=== PATIENT | female | born 1975 | race African-American/Black ===

== ENCOUNTER 2017-01-25 21:58 | Emergency (ER) | payer MEDICAID ==
[~2017-01-25] VITALS: Ht 152.4 cm; Wt 100.0 kg
[2017-01-26 04:01] VITALS: BP 103/52
== END 2017-01-26 04:03 | disposition home or self-care (01) ==
LOC: ER 22:38
DX: M25.561 Pain in right knee (principal); Z88.0 Allergy status to penicillin
CPT/HCPCS: 29505; 73562; 81025; 99284

== ENCOUNTER 2018-09-13 02:50 | Emergency (ER) | payer MEDICAID ==
[~2018-09-13] VITALS: Ht 149.9 cm; Wt 136.0 kg
[2018-09-13] MEDS ORDERED: SODIUM CHLORIDE 0.9% 1,000 ML IV ONE (04:58)
[2018-09-13 05:58] LABS: CHLORIDE 107 mEq/L (98-107)
[2018-09-13 06:05] LABS: BASOPHILS % 0.5 % (0.0-2.0); EOSINOPHILS % 3.9 % (0.0-5.0); HEMATOCRIT. 37.8 % (36.0-48.0); LYMPHOCYTES % 25.3 % (20.0-50.0); MEAN CORPUSCULAR HEMOGLOBIN 23.6 pg (28.0-32.0); MEAN CORPUSCULAR VOLUME 74.5 fL (81.0-99.0); MEAN PLATELET VOLUME 7.7 fl (7.4-10.4); NEUTROPHILS % 64.3 % (40.0-76.0); PLATELET 360 x1000/uL (130-400); RED BLOOD CELL COUNT 5.08 mill/uL (4.2-5.4); RED CELL DISTRIBUTION WIDTH 18.4 % (11.6-14.6)
[2018-09-13 06:43] LABS: *AMPHETAMINES SCREEN URINE NEGATIVE (NEGATIVE); *BARBITURATES SCREEN URINE NEGATIVE (NEGATIVE)
[2018-09-13 06:44] LABS: *BENZODIAZEPINES SCREEN URINE NEGATIVE (NEGATIVE); *COCAINE SCREEN URINE NEGATIVE (NEGATIVE); METHADONE URINE SCREEN NEGATIVE (NEGATIVE); OPIATES URINE SCREEN NEGATIVE (NEGATIVE); PHENCYCLIDINE URINE SCREEN NEGATIVE (NEGATIVE)
[2018-09-13 07:14] LABS: CANNABINOID URINE SCREEN PRESUMTIVE POSITIVE (NEGATIVE)
[2018-09-13 08:09] VITALS: BP 118/69
== END 2018-09-13 08:48 | disposition home or self-care (01) ==
LOC: ER 02:50
DX: R00.2 Palpitations (principal); F41.9 Anxiety disorder, unspecified; Z88.0 Allergy status to penicillin
CPT/HCPCS: 36415; 71045; 80053; 80305; 83880; 84484; 85025; 93005; 96360; 99284; J7030

== ENCOUNTER 2018-12-05 17:47 | Inpatient (IN) | payer MEDICAID ==
[~2018-12-05] VITALS: Ht 149.9 cm; Wt 131.1 kg
[2018-12-05] MEDS ORDERED: ESCI10TA PO (18:03)
[2018-12-05] MEDS ORDERED: ALPR1TAB2 PO (18:03)
[2018-12-05] MEDS ORDERED: QUET50TA PO (18:03)
[2018-12-05] MEDS ORDERED: OMEP10CA5 PO (18:03)
[2018-12-05] MEDS ORDERED: NITROGLYCERIN 0.4MG TABLET SL SL PRN (22:15)
[2018-12-05] MEDS ORDERED: ASPIRIN 81MG TABLET PO ONE (22:15)
[2018-12-05 23:04] LABS: CHLORIDE 106 mEq/L (98-107)
[2018-12-05 23:06] LABS: HCG SCREEN NEGATIVE
[2018-12-05 23:07] LABS: BASOPHILS % 1.1 % (0.0-2.0); HEMATOCRIT. 36.7 % (36.0-48.0); HEMOGLOBIN. 11.6 g/dL (12.0-16.0); MEAN CORPUSCULAR HEMOGLOBIN 23.7 pg (28.0-32.0); MEAN PLATELET VOLUME 7.8 fl (7.4-10.4); MONOCYTES % 8.1 % (2.0-8.0); NEUTROPHILS % 44.8 % (40.0-76.0); PLATELET 381 x1000/uL (130-400); RED CELL DISTRIBUTION WIDTH 17.3 % (11.6-14.6)
[2018-12-05 23:08] LABS: D-DIMER 0.79 mg/L FEU (<0.50); PARTIAL THROMBOPLASTIN TIME 28.2 sec (23.4-31.0); PROTHROMBIN TIME 10.7 sec (9.6-11.0)
[2018-12-06] MEDS ORDERED: DOCUSATE SODIUM 100MG CAPSULE PO PRN
[2018-12-06] MEDS ORDERED: MAGNESIUM/ALUMINUM HYDROXIDE/SIMETHICONE 30ML UDC PO PRN
[2018-12-06] MEDS ORDERED: ACETAMINOPHEN 325MG TABLET PO PRN
[2018-12-06] MEDS ORDERED: CLONIDINE 0.1MG TABLET PO PRN
[2018-12-06] MEDS ORDERED: IPRATROPIUM/ALBUTEROL 0.5-3(2.5)MG/3ML NEB INH PRN
[2018-12-06] MEDS ORDERED: HYDROCODONE/ACETAMINOPHEN 5/325MG TABLET PO PRN
[2018-12-06] MEDS ORDERED: ONDANSETRON HCL 4MG/2ML INJ IV PRN
[2018-12-06] MEDS ORDERED: IOHEXOL-350 100 ML BOTTLE ONE (00:33)
[2018-12-06 00:43] LABS: CHLORIDE 107 mEq/L (98-107)
[2018-12-06 01:55] VITALS: BP 136/78
[2018-12-06 02:00] VITALS: BP 136/78
[2018-12-06 04:00] VITALS: BP 132/83
[2018-12-06] MEDS ORDERED: PANT40TA4 MT (05:34)
[2018-12-06] MEDS ORDERED: ALPR-340 PO (05:34)
[2018-12-06] MEDS ORDERED: ESCI10TA54 MT (05:34)
[2018-12-06] MEDS ORDERED: HYDR50CA5 MT (05:36)
[2018-12-06 07:22] LABS: BASOPHILS % 0.4 % (0.0-2.0); EOSINOPHILS % 5.7 % (0.0-5.0); HEMATOCRIT. 34.9 % (36.0-48.0); HEMOGLOBIN. 10.9 g/dL (12.0-16.0); LYMPHOCYTES % 31.8 % (20.0-50.0); MEAN CORPUSCULAR HEMOGLOBIN 23.4 pg (28.0-32.0); MEAN PLATELET VOLUME 7.9 fl (7.4-10.4); MONOCYTES % 9.1 % (2.0-8.0); PLATELET 337 x1000/uL (130-400); RED BLOOD CELL COUNT 4.66 mill/uL (4.2-5.4); RED CELL DISTRIBUTION WIDTH 17.6 % (11.6-14.6)
[2018-12-06 07:33] LABS: LDL CHOLESTEROL 57 mg/dL (5-100)
[2018-12-06 07:34] LABS: CREATINE KINASE 137 IU/L (26-192); HDL CHOLESTEROL 51 mg/dL (40-59)
[2018-12-06 07:36] LABS: CREATINE KINASE MB FRACTION < 1.0 ng/mL (0.5-3.6)
[2018-12-06 08:00] VITALS: BP 113/52
[2018-12-06] MEDS: ASPIRIN 81MG EC TABLET PO SCH (09:59)
[2018-12-06] MEDS: ENOXAPARIN 40MG/0.4ML SYR SUBCUT SCH ×2 (09:59→20:49)
[2018-12-06] MEDS ORDERED: PNEUMOCOCCAL 23-VAL P-SAC VAC 0.5 ML IM ONE (12:00)
[2018-12-06] MEDS ORDERED: POTASSIUM CHLORIDE 20MEQ TABLET SR PO NR (15:15)
[2018-12-06] MEDS ORDERED: ALPRAZOLAM 0.5 MG TABLET PO PRN (15:15)
[2018-12-06] MEDS ORDERED: NON FORMULARY PATIENT HOME MED XX SCH (15:15)
[2018-12-06 16:05] LABS: CREATINE KINASE 145 IU/L (26-192)
[2018-12-06 16:07] LABS: CREATINE KINASE MB FRACTION < 1.0 ng/mL (0.5-3.6)
[2018-12-06] MEDS ORDERED: MAGNESIUM 4 G PREMIX 100 ML IV SCH (16:30)
[2018-12-06 16:45] LABS: TOTAL IRON BINDING CAPACITY 308 ug/dL (250-450)
[2018-12-06] MEDS: PANTOPRAZOLE 40MG DR TABLET PO SCH (17:28)
[2018-12-06 20:00] VITALS: BP 114/58
[2018-12-06] MEDS ORDERED: QUETIAPINE FUMARATE 50MG TABLET PO SCH (21:00)
[2018-12-07] VITALS: BP 121/55
[2018-12-07 04:00] VITALS: BP 104/63
[2018-12-07] MEDS: PANTOPRAZOLE 40MG DR TABLET PO SCH (06:39)
[2018-12-07 07:16] LABS: BASOPHILS % 0.4 % (0.0-2.0); EOSINOPHILS % 8.7 % (0.0-5.0); HEMATOCRIT. 34.6 % (36.0-48.0); HEMOGLOBIN. 10.8 g/dL (12.0-16.0); LYMPHOCYTES % 43.7 % (20.0-50.0); MEAN CORPUSCULAR HEMOGLOBIN 23.5 pg (28.0-32.0); MEAN CORPUSCULAR VOLUME 75.4 fL (81.0-99.0); MEAN PLATELET VOLUME 7.8 fl (7.4-10.4); NEUTROPHILS % 39.2 % (40.0-76.0); PLATELET 314 x1000/uL (130-400); RED BLOOD CELL COUNT 4.59 mill/uL (4.2-5.4); RED CELL DISTRIBUTION WIDTH 17.5 % (11.6-14.6)
[2018-12-07 08:00] VITALS: BP 121/76
[2018-12-07 08:24] LABS: CHLORIDE 108 mEq/L (98-107)
[2018-12-07] MEDS ORDERED: CITALOPRAM HYDROBROMIDE 20MG TABLET PO SCH (09:00)
[2018-12-07] MEDS: ASPIRIN 81MG EC TABLET PO SCH (09:22)
[2018-12-07] MEDS: ENOXAPARIN 40MG/0.4ML SYR SUBCUT SCH (09:23)
[2018-12-07 11:47] VITALS: BP 113/49
[2018-12-07 15:12] VITALS: BP 113/49
[2018-12-07 15:53] VITALS: BP 129/60
== END 2018-12-07 17:40 | disposition home or self-care (01) | DRG 203 ==
LOC: ER 17:47 → 8WST 23:36 → ENRESERV 12-06 00:10
PROVIDERS: ADMIT Internal Medicine; ATTEND Internal Medicine
DX: M94.0 Chondrocostal junction syndrome [Tietze] (principal); D72.1 Eosinophilia; E66.01 Morbid (severe) obesity due to excess calories; E83.42 Hypomagnesemia; Z68.43 Body mass index [BMI] 50.0-59.9, adult; R07.89 Other chest pain; K52.9 Noninfective gastroenteritis and colitis, unspecified; F32.9 Major depressive disorder, single episode, unspecified; D50.9 Iron deficiency anemia, unspecified; E87.6 Hypokalemia; R73.03 Prediabetes; G89.4 Chronic pain syndrome; I10 Essential (primary) hypertension; K21.9 Gastro-esophageal reflux disease without esophagitis; Z79.01 Long term (current) use of anticoagulants; Z79.899 Other long term (current) drug therapy; Z88.0 Allergy status to penicillin; Z71.3 Dietary counseling and surveillance
CPT/HCPCS: 36415; 71045; 71275; 80048; 80061; 82550; 82553; 82728; 83036; 83540; 83550; 83735; 83880; 84100; 84443; 84484; 84703; 85379; 93005; 93306; 93970; 99285; J1650; J3475; J7050; Q9967

== ENCOUNTER 2020-09-01 08:03 | Emergency (ER) | payer MEDICAID ==
[~2020-09-01] VITALS: Ht 160 cm; Wt 88.0 kg
[~2020-09-01 08:03] MED LIST: ALPR-340 PO; ESCI-7 MT; HYDR50CA5 MT; PANT40TA51 MT; QUET50TA PO
[2020-09-01 08:09] VITALS: BP 115/70
== END 2020-09-01 09:03 | disposition home or self-care (01) ==
LOC: ER 08:03
DX: G47.00 Insomnia, unspecified (principal); F41.9 Anxiety disorder, unspecified; Z88.0 Allergy status to penicillin
CPT/HCPCS: 99281

== ENCOUNTER 2020-09-30 02:36 | Emergency (ER) | payer MEDICAID ==
[~2020-09-30] VITALS: Ht 154.9 cm; Wt 91.0 kg
[2020-09-30 04:00] VITALS: BP 138/80
== END 2020-09-30 04:37 | disposition home or self-care (01) ==
LOC: ER 02:36
DX: Z13.9 Encounter for screening, unspecified (principal); I49.9 Cardiac arrhythmia, unspecified
CPT/HCPCS: 93005; 99283

== ENCOUNTER 2020-11-10 01:23 | Emergency (ER) | payer MEDICAID ==
[~2020-11-10] VITALS: Ht 149.9 cm; Wt 104.0 kg
[2020-11-10 05:38] LABS: BASOPHILS % 0.7 % (0.0-2.0); EOSINOPHILS % 1.8 % (0.0-5.0); HEMATOCRIT. 38.1 % (36.0-48.0); HEMOGLOBIN. 11.8 g/dL (12.0-16.0); LYMPHOCYTES % 25.1 % (20.0-50.0); MEAN CORPUSCULAR HEMOGLOBIN 24.9 pg (28.0-32.0); MEAN CORPUSCULAR VOLUME 80.3 fL (81.0-99.0); MEAN PLATELET VOLUME 7.7 fl (7.4-10.4); MONOCYTES % 7.6 % (2.0-8.0); NEUTROPHILS % 64.8 % (40.0-76.0); PLATELET 326 x1000/uL (130-400); RED BLOOD CELL COUNT 4.75 mill/uL (4.2-5.4); RED CELL DISTRIBUTION WIDTH 17.1 % (11.6-14.6)
[2020-11-10 05:43] LABS: CHLORIDE 109 mEq/L (98-107)
[2020-11-10 06:18] LABS: CLARITY URINE TURBID (CLEAR); KETONES URINE 2+ (NEGATIVE); LEUKOCYTE ESTERASE URINE 3+ (NEGATIVE); NITRITE URINE POSITIVE (NEGATIVE); OCCULT BLOOD URINE 3+ (NEGATIVE); PROTEIN URINE 3+ (NEGATIVE); SPECIFIC GRAVITY URINE 1.042 (1.005-1.030)
[2020-11-10 06:19] LABS: COLOR URINE BLOODY (YELLOW)
[2020-11-10] MEDS ORDERED: IBUP-2030 PO (06:58)
[2020-11-10 07:00] VITALS: BP 130/86
[2020-11-10] MEDS ORDERED: NITR100C PO (07:00)
== END 2020-11-10 07:13 | disposition home or self-care (01) ==
LOC: ER 01:23
DX: D25.9 Leiomyoma of uterus, unspecified (principal); N39.0 Urinary tract infection, site not specified; F12.10 Cannabis abuse, uncomplicated; Z87.19 Personal history of other diseases of the digestive system
CPT/HCPCS: 36415; 76830; 76856; 80053; 81003; 85025; 93005; 99285

== ENCOUNTER 2021-02-23 20:24 | Emergency (ER) | payer MEDICAID ==
[~2021-02-23] VITALS: Ht 149.9 cm; Wt 106.0 kg
[~2021-02-23 20:24] MED LIST changes: +IBUP-2030 PO; +NITR100C PO
[2021-02-23] MEDS ORDERED: TETANUS, DIPHTHERIA, PERTUSSIS VAC/PF 0.5ML (>7YR OLD) IM ONE (22:00)
[2021-02-23] MEDS ORDERED: IBUPROFEN 600MG TABLET PO ONE (22:00)
[2021-02-23 22:30] VITALS: BP 148/96
== END 2021-02-23 23:07 | disposition home or self-care (01) ==
LOC: ER 20:24
DX: S91.332A Puncture wound without foreign body, left foot, initial encounter (principal); M19.90 Unspecified osteoarthritis, unspecified site; F12.10 Cannabis abuse, uncomplicated; Z88.0 Allergy status to penicillin; W22.8XXA Striking against or struck by other objects, initial encounter; Y93.89 Activity, other specified; Y92.018 Other place in single-family (private) house as the place of occurrence of the external cause
CPT/HCPCS: 90471; 90715; 99283

== ENCOUNTER 2022-04-30 10:11 | Emergency (ER) | payer MEDICAID ==
[~2022-04-30] VITALS: Ht 149.9 cm; Wt 115.0 kg
[2022-04-30 10:25] VITALS: BP 136/93
[2022-04-30] MEDS ORDERED: CLIN-194 MT (11:51)
[2022-04-30] MEDS ORDERED: IBUPROFEN 600MG TABLET PO ONE (12:15)
== END 2022-04-30 12:24 | disposition home or self-care (01) ==
LOC: ER 10:18
DX: S01.512A Laceration without foreign body of oral cavity, initial encounter (principal); F12.10 Cannabis abuse, uncomplicated; Z88.0 Allergy status to penicillin; X58.XXXA Exposure to other specified factors, initial encounter; Y93.89 Activity, other specified; Y92.89 Other specified places as the place of occurrence of the external cause; Y99.8 Other external cause status
CPT/HCPCS: 99283

== ENCOUNTER 2022-06-08 20:09 | Emergency (ER) | payer MEDICAID, OTHER ==
[~2022-06-08] VITALS: Ht 149.9 cm; Wt 129.9 kg
[~2022-06-08 20:09] MED LIST changes: +CLIN-194 MT
[2022-06-09] MEDS ORDERED: CYCLOBENZAPRINE 10MG TABLET PO ONE (00:15)
[2022-06-09] MEDS ORDERED: KETOROLAC 15MG/ML VIAL IM ONE (00:15)
[2022-06-09] MEDS ORDERED: CYCL10TA21 MT (02:18)
[2022-06-09] MEDS ORDERED: NAPR-681 MT (02:18)
[2022-06-09 02:28] VITALS: BP 134/89
== END 2022-06-09 02:29 | disposition home or self-care (01) ==
LOC: ER 20:09
DX: M25.512 Pain in left shoulder (principal); M25.522 Pain in left elbow; Z88.0 Allergy status to penicillin
CPT/HCPCS: 73030; 73080; 96372; 99284; J1885

== ENCOUNTER 2023-06-12 15:10 | Inpatient (IN) | payer MEDICAID ==
[~2023-06-12] VITALS: Ht 149.9 cm; Wt 133.9 kg
[~2023-06-12 15:10] MED LIST changes: +CYCL10TA21 MT; +NAPR-681 MT
[2023-06-12 16:15] LABS: BASOPHILS % 0.5 % (0.0-2.0); DIFFERENTIAL COMMENT 0; EOSINOPHILS % 1.2 % (0.0-5.0); HEMATOCRIT. 34.9 % (36.0-48.0); HEMOGLOBIN. 10.5 g/dL (12.0-16.0); LYMPHOCYTES % 28.7 % (20.0-50.0); MEAN CORPUSCULAR HEMOGLOBIN 21.2 pg (28.0-32.0); MEAN CORPUSCULAR HGB CONC 30.1 g/dL (31.0-37.0); MEAN CORPUSCULAR VOLUME 70.6 fL (81.0-99.0); MEAN PLATELET VOLUME 7.5 fl (7.4-10.4); MONOCYTES % 7.8 % (2.0-8.0); NEUTROPHILS % 61.8 % (40.0-76.0); PLATELET 392 x1000/uL (130-400); RED BLOOD CELL COUNT 4.94 mill/uL (4.2-5.4); RED CELL DISTRIBUTION WIDTH 19.9 % (11.6-14.6)
[2023-06-12 16:28] LABS: HCG SCREEN NEGATIVE
[2023-06-12 16:29] LABS: ALANINE AMINOTRANSFERASE 14 IU/L (10-49); ALBUMIN 3.7 g/dL (3.2-4.8); ASPARTATE AMINOTRANSFERASE 28 IU/L (<34); BILIRUBIN TOTAL 0.5 mg/dL (0.1-1.0); CALCIUM 8.7 mg/dL (8.7-10.4); CARBON DIOXIDE 22 mEq/L (21-32); CHLORIDE 104 mEq/L (98-107); CREATININE 1.2 mg/dL (0.6-1.0); GLUCOSE 269 mg/dL (70-105); POTASSIUM 3.1 mEq/L (3.5-5.1); PROTEIN TOTAL 7.1 g/dL (6.0-8.3); SODIUM 139 mEq/L (136-145); UREA NITROGEN BLOOD 6 mg/dL (9-23)
[2023-06-12 16:53] LABS: ETHANOL BLOOD < 10 mg/dL (<10); LACTIC ACID 6.3 mmol/L (0.4-2.0); TROPONIN I HIGH SENSITIVITY 205 ng/L (3.0-34)
[2023-06-12] MEDS ORDERED: LEVOFLOXACIN 500MG PREMIX 100 ML IV ONE (17:45)
[2023-06-12] MEDS ORDERED: SODIUM CHLORIDE 0.9% 1000ML BAG (SEPSIS BOLUS) IV ONE (17:45)
[2023-06-12 23:45] VITALS: BP 128/65; PULSE 108; RESP 18; TEMP 98
[2023-06-13] MEDS ORDERED: DEXTROSE 50% WATER 50ML SYRINGE IV PRN (01:00)
[2023-06-13] MEDS ORDERED: IPRATROPIUM/ALBUTEROL 0.5-3(2.5)MG/3ML NEB HHN PRN ×2 (01:00→17:30)
[2023-06-13 04:00] VITALS: BP 104/60; PULSE 106; RESP 17; TEMP 98.6
[2023-06-13] MEDS ORDERED: ONDANSETRON HCL 4MG TABLET PO PRN (06:15)
[2023-06-13] MEDS ORDERED: POTASSIUM CHLORIDE 20MEQ TABLET SR PO SCH (06:30)
[2023-06-13] MEDS ORDERED: PANTOPRAZOLE 40MG DR TABLET PO SCH (07:40)
[2023-06-13] MEDS ORDERED: BLOOD SUGAR DIAGNOSTIC STRIP TEST SCH (07:40)
[2023-06-13 08:00] VITALS: BP 113/33; PULSE 99; RESP 18; TEMP 98.1
[2023-06-13] MEDS: INSULIN LISPRO 100 UNITS/ML SUBCUT SCH ×3 (08:10→20:30)
[2023-06-13 09:25] LABS: BG BASE EXCESS -1.6 mmol/L (-2.0-2.0); BG CARBOXYHEMOGLOBIN 0.3 % (0.5-1.5); BG DEOXYHEMOGLOBIN 7.3 % (0.0-5.0); BG FRACTION INSPIRED OXYGEN 21; BG HCO3 ACT 21.4 mmol/L (22.0-26.0); BG METHEMOGLOBIN 0.2 % (0.0-1.5); BG OXYGEN SATURATION 92.7 % (92.0-98.5); BG OXYHEMOGLOBIN 92.2 % (94.0-97.0); BG PCO2 30.1 mmHg (35.0-45.0); BG PH 7.469 (7.350-7.450); BG PO2 61.6 mmHg (75.0-100.0); BG SAMPLE SITE RIGHT RADIAL; BG TOTAL HEMOGLOBIN 10.6 g/dL (12.0-18.0); BG VENT MODE ROOM AIR
[2023-06-13] MEDS: ENOXAPARIN 40MG/0.4ML SYR SUBCUT SCH ×2 (09:30→20:33)
[2023-06-13 12:00] VITALS: BP 96/55; PULSE 96; RESP 20; TEMP 97.6
[2023-06-13] MEDS: BLOOD SUGAR DIAGNOSTIC STRIP TEST SCH ×2 (12:40→20:30)
[2023-06-13] MEDS ORDERED: MAGNESIUM/ALUMINUM HYDROXIDE/SIMETHICONE 30ML UDC PO PRN (15:00)
[2023-06-13 16:00] VITALS: BP_SYST 96; BP_DIAS 40; BP_DIAS 43; PULSE 95; RESP 20; TEMP 97.6
[2023-06-13 18:47] VITALS: BP 96/43; PULSE 96; RESP 18; TEMP 97.8
[2023-06-13 20:00] VITALS: BP 98/53; PULSE 98; RESP 19; TEMP 97.5
[2023-06-13] MEDS: FAMOTIDINE 20MG TABLET PO SCH (20:33)
[2023-06-13 20:42] LABS: BASOPHILS % 0.6 % (0.0-2.0); HEMATOCRIT. 31.2 % (36.0-48.0); HEMOGLOBIN. 9.6 g/dL (12.0-16.0); LYMPHOCYTES % 25.3 % (20.0-50.0); MEAN CORPUSCULAR HEMOGLOBIN 21.1 pg (28.0-32.0); MEAN CORPUSCULAR HGB CONC 30.6 g/dL (31.0-37.0); MEAN CORPUSCULAR VOLUME 68.9 fL (81.0-99.0); MEAN PLATELET VOLUME 7.6 fl (7.4-10.4); MONOCYTES % 8.3 % (2.0-8.0); NEUTROPHILS % 65.8 % (40.0-76.0); PLATELET 287 x1000/uL (130-400); RED BLOOD CELL COUNT 4.53 mill/uL (4.2-5.4); RED CELL DISTRIBUTION WIDTH 19.8 % (11.6-14.6); WHITE BLOOD COUNT 6.3 x1000/uL (4.5-11.0)
[2023-06-13 20:50] LABS: DIFFERENTIAL COMMENT 1
[2023-06-13 20:51] LABS: ADD RBC MORPHOLOGY YES
[2023-06-13 21:04] LABS: CALCIUM 9.1 mg/dL (8.7-10.4); CREATININE 1.2 mg/dL (0.6-1.0); POTASSIUM 4.5 mEq/L (3.5-5.1)
[2023-06-13 21:38] LABS: PLATELET ESTIMATE NORMAL
[2023-06-13 21:39] LABS: ANISOCYTOSIS 1+; HYPOCHROMASIA 2+; MICROCYTOSIS 3+
[2023-06-13] MEDS ORDERED: ENOXAPARIN 100MG/ML SYR SUBCUT NR (22:01)
[2023-06-14] VITALS: BP 96/47; PULSE 94; RESP 20; TEMP 97.1
[2023-06-14 04:00] VITALS: BP 95/57; PULSE 92; RESP 19; TEMP 97.3
[2023-06-14] MEDS: INSULIN LISPRO 100 UNITS/ML SUBCUT SCH ×4 (05:38→21:00)
[2023-06-14] MEDS: BLOOD SUGAR DIAGNOSTIC STRIP TEST SCH ×4 (05:38→21:19)
[2023-06-14 08:00] VITALS: BP 119/64; PULSE 91; RESP 18; TEMP 97.8
[2023-06-14] MEDS: FAMOTIDINE 20MG TABLET PO SCH ×2 (09:11→21:19)
[2023-06-14] MEDS: METOPROLOL TARTRATE 25MG TABLET PO SCH ×2 (09:11→21:00)
[2023-06-14] MEDS: ASPIRIN 81MG TABLET PO SCH (09:11)
[2023-06-14] MEDS: ISOSORBIDE MONONITRATE 30MG TABLET SR 24HR PO SCH (09:11)
[2023-06-14 10:03] LABS: PROTHROMBIN TIME 10.9 sec (9.6-11.0)
[2023-06-14 10:41] LABS: TROPONIN I HIGH SENSITIVITY 2166 ng/L (3.0-34)
[2023-06-14] MEDS ORDERED: FERR-63 PO (10:42)
[2023-06-14 12:00] VITALS: BP 119/62; PULSE 91; RESP 18; TEMP 97.6
[2023-06-14] MEDS: ENOXAPARIN 150MG/ML SYR SUBCUT SCH ×2 (12:49→21:19)
[2023-06-14 16:00] VITALS: BP 124/65; PULSE 89; RESP 18; TEMP 97.2
[2023-06-14 17:38] LABS: TROPONIN I HIGH SENSITIVITY 1561 ng/L (3.0-34)
[2023-06-14 20:00] VITALS: BP 99/65; PULSE 90; RESP 17; TEMP 97.1
[2023-06-14] MEDS: ATORVASTATIN CALCIUM 40MG TABLET PO SCH (21:19)
[2023-06-15] VITALS: BP 137/56; PULSE 94; RESP 18; TEMP 98
[2023-06-15 04:00] VITALS: BP 120/64; PULSE 96; RESP 19; TEMP 98.3
[2023-06-15] MEDS: BLOOD SUGAR DIAGNOSTIC STRIP TEST SCH ×4 (07:43→21:02)
[2023-06-15] MEDS: INSULIN LISPRO 100 UNITS/ML SUBCUT SCH ×4 (07:44→21:00)
[2023-06-15 08:00] VITALS: BP 148/65; TEMP 98.2
[2023-06-15] MEDS: ASPIRIN 81MG TABLET PO SCH (08:52)
[2023-06-15] MEDS: METOPROLOL TARTRATE 25MG TABLET PO SCH (08:53)
[2023-06-15] MEDS: ISOSORBIDE MONONITRATE 30MG TABLET SR 24HR PO SCH (08:53)
[2023-06-15] MEDS: FAMOTIDINE 20MG TABLET PO SCH ×2 (08:54→21:02)
[2023-06-15] MEDS: ENOXAPARIN 150MG/ML SYR SUBCUT SCH ×2 (08:57→21:02)
[2023-06-15] MEDS ORDERED: IOHEXOL-350 100 ML BOTTLE ONE (11:15)
[2023-06-15 12:00] VITALS: BP 135/57; PULSE 94; TEMP 97.8
[2023-06-15] MEDS: AMLODIPINE 5MG TABLET PO SCH (12:27)
[2023-06-15 16:00] VITALS: BP 132/64; TEMP 97.7
[2023-06-15 20:00] VITALS: BP 114/81; PULSE 100; RESP 20; TEMP 98.4
[2023-06-15] MEDS: ATORVASTATIN CALCIUM 40MG TABLET PO SCH (21:02)
[2023-06-16] VITALS: BP 112/67; PULSE 92; RESP 18; TEMP 99.8
[2023-06-16 04:00] VITALS: BP 107/52; PULSE 91; RESP 18; TEMP 98.6
[2023-06-16] MEDS: INSULIN LISPRO 100 UNITS/ML SUBCUT SCH ×4 (07:47→21:00)
[2023-06-16] MEDS: BLOOD SUGAR DIAGNOSTIC STRIP TEST SCH ×4 (07:47→21:12)
[2023-06-16] MEDS: FAMOTIDINE 20MG TABLET PO SCH ×2 (09:40→21:12)
[2023-06-16] MEDS: AMLODIPINE 5MG TABLET PO SCH (09:41)
[2023-06-16] MEDS: ENOXAPARIN 150MG/ML SYR SUBCUT SCH ×2 (09:42→21:12)
[2023-06-16 20:00] VITALS: BP 118/68; PULSE 92; RESP 18; TEMP 98.1
[2023-06-16] MEDS: ATORVASTATIN CALCIUM 40MG TABLET PO SCH (21:12)
[2023-06-16] MEDS ORDERED: PROMETHAZINE/DEXTROMETHORPHAN 6.25-15MG/5ML BOTTLE 120ML PO PRN (22:15)
[2023-06-16 23:18] LABS: CLARITY URINE CLOUDY (CLEAR); COLOR URINE YELLOW (YELLOW); GLUCOSE URINE NEGATIVE (NEGATIVE); KETONES URINE TRACE (NEGATIVE); OCCULT BLOOD URINE NEGATIVE (NEGATIVE); PH URINE 6.5 (4.5-8.0); PROTEIN URINE NEGATIVE (NEGATIVE)
[2023-06-16 23:19] LABS: LEUKOCYTE ESTERASE URINE NEGATIVE (NEGATIVE); NITRITE URINE NEGATIVE (NEGATIVE)
[2023-06-17] VITALS: BP 109/63; PULSE 89; RESP 18; TEMP 98.1
[2023-06-17 00:08] LABS: SQUAMOUS EPITHELIAL CELL URINE 1+ /lpf (RARE/1+)
[2023-06-17 00:09] LABS: BACTERIA URINE 1+; RBC URINE 0-2 /hpf (0-2); WBC URINE 0-2 /hpf (0-2)
[2023-06-17 04:00] VITALS: BP 124/56; PULSE 91; RESP 19; TEMP 98.2
[2023-06-17 08:00] VITALS: BP 122/64; PULSE 89; RESP 19; TEMP 97.5
[2023-06-17] MEDS: INSULIN LISPRO 100 UNITS/ML SUBCUT SCH ×4 (08:10→21:00)
[2023-06-17] MEDS: BLOOD SUGAR DIAGNOSTIC STRIP TEST SCH ×4 (08:19→21:25)
[2023-06-17] MEDS: ENOXAPARIN 150MG/ML SYR SUBCUT SCH ×2 (09:26→21:24)
[2023-06-17] MEDS: AMLODIPINE 5MG TABLET PO SCH (09:27)
[2023-06-17] MEDS: FAMOTIDINE 20MG TABLET PO SCH ×2 (09:27→21:25)
[2023-06-17 12:00] VITALS: BP 126/75; PULSE 87; RESP 19; TEMP 97.4
[2023-06-17] MEDS: DOCUSATE SODIUM 250MG CAPSULE PO SCH (13:30)
[2023-06-17] MEDS ORDERED: LACTULOSE 20G/30ML UDC PO NR (13:30)
[2023-06-17 16:00] VITALS: BP 120/62; PULSE 79; RESP 19; TEMP 98.3
[2023-06-17] MEDS ORDERED: APIX5TAB MT (16:11)
[2023-06-17 20:00] VITALS: BP 124/40; PULSE 95; RESP 19; TEMP 97.8
[2023-06-17] MEDS: ATORVASTATIN CALCIUM 40MG TABLET PO SCH (21:25)
[2023-06-17 22:08] LABS: BASOPHILS % 0.6 % (0.0-2.0); DIFFERENTIAL COMMENT 0; EOSINOPHILS % 2.9 % (0.0-5.0); HEMATOCRIT. 32.2 % (36.0-48.0); HEMOGLOBIN. 9.3 g/dL (12.0-16.0); LYMPHOCYTES % 30.2 % (20.0-50.0); MEAN CORPUSCULAR HEMOGLOBIN 20.4 pg (28.0-32.0); MEAN CORPUSCULAR VOLUME 70.4 fL (81.0-99.0); MEAN PLATELET VOLUME 8.3 fl (7.4-10.4); MONOCYTES % 8.4 % (2.0-8.0); NEUTROPHILS % 57.9 % (40.0-76.0); PLATELET 339 x1000/uL (130-400); RED BLOOD CELL COUNT 4.57 mill/uL (4.2-5.4); RED CELL DISTRIBUTION WIDTH 19.3 % (11.6-14.6); WHITE BLOOD COUNT 5.2 x1000/uL (4.5-11.0)
[2023-06-17 22:21] LABS: CALCIUM 8.6 mg/dL (8.7-10.4); CARBON DIOXIDE 25 mEq/L (21-32); CHLORIDE 106 mEq/L (98-107); CREATININE 0.9 mg/dL (0.6-1.0); GLUCOSE 111 mg/dL (70-105); POTASSIUM 4.1 mEq/L (3.5-5.1); SODIUM 139 mEq/L (136-145); UREA NITROGEN BLOOD 11 mg/dL (9-23)
[2023-06-18] VITALS: BP 103/61; PULSE 88; RESP 19; TEMP 97.9
[2023-06-18 04:00] VITALS: BP 117/46; PULSE 91; RESP 18; TEMP 97.7
[2023-06-18] MEDS: BLOOD SUGAR DIAGNOSTIC STRIP TEST SCH ×2 (07:27→12:40)
[2023-06-18] MEDS: INSULIN LISPRO 100 UNITS/ML SUBCUT SCH ×2 (07:28→13:10)
[2023-06-18 08:00] VITALS: BP 107/80; PULSE 93; RESP 16; TEMP 97.8
[2023-06-18] MEDS: DOCUSATE SODIUM 250MG CAPSULE PO SCH (09:00)
[2023-06-18] MEDS: AMLODIPINE 5MG TABLET PO SCH (09:00)
[2023-06-18] MEDS: FAMOTIDINE 20MG TABLET PO SCH (09:06)
[2023-06-18] MEDS: ENOXAPARIN 150MG/ML SYR SUBCUT SCH (09:07)
[2023-06-18 12:00] VITALS: BP 101/68; PULSE 92; RESP 18; TEMP 98.2
[2023-06-18 13:25] VITALS: BP 105/68; PULSE 89; TEMP 98.2; O2SAT 96
== END 2023-06-18 16:18 | disposition home or self-care (01) | DRG 134 ==
LOC: ER 15:10 → EDBEDREQTM 19:34 → EDBEDREQ 19:34 → EDBEDREQSVC 19:34 → MICUSO 22:24 → 7WST 06-13 00:12
PROVIDERS: ADMIT Internal Medicine; ATTEND Internal Medicine
DX: I26.92 Saddle embolus of pulmonary artery without acute cor pulmonale (principal); J96.01 Acute respiratory failure with hypoxia; N17.0 Acute kidney failure with tubular necrosis; I21.4 Non-ST elevation (NSTEMI) myocardial infarction; Z20.822 Contact with and (suspected) exposure to COVID-19; E87.6 Hypokalemia; E66.01 Morbid (severe) obesity due to excess calories; Z68.43 Body mass index [BMI] 50.0-59.9, adult; Z88.0 Allergy status to penicillin; Z71.6 Tobacco abuse counseling
CPT/HCPCS: 36415; 36600; 71045; 71275; 74018; 80048; 80053; 80320; 81003; 82375; 82805; 82962; 83036; 83605; 84484; 84703; 85025; 87426; 93005; 93306; 93970; 94618; 96365; 99285; J1650; J1815; J1956; J7030; Q0162; Q9967; G0480

== ENCOUNTER 2023-09-14 09:42 | Emergency (ER) | payer MEDICAID ==
[~2023-09-14] VITALS: Ht 149.9 cm; Wt 132.0 kg
[~2023-09-14 09:42] MED LIST changes: -ALPR-340 PO; +APIX5TAB MT; -CLIN-194 MT; -CYCL10TA21 MT; -ESCI-7 MT; +FERR-63 PO; -HYDR50CA5 MT; -IBUP-2030 PO; -NAPR-681 MT; -NITR100C PO; -PANT40TA51 MT; -QUET50TA PO
[2023-09-14 09:43] VITALS: O2SAT 95
[2023-09-14] MEDS ORDERED: MORPHINE SULFATE 10 MG/ML CPJ (NOT FOR IM USE) IM ONE (10:30)
[2023-09-14] MEDS ORDERED: OXYC-100 MT (10:47)
[2023-09-14] MEDS: ONDANSETRON 4MG ODT PO ONE (10:50)
[2023-09-14] MEDS: MORPHINE SULFATE 10 MG/ML CPJ (NOT FOR IM USE) IM NR (10:50)
[2023-09-14 11:43] VITALS: BP 134/89; PULSE 99; RESP 12; TEMP 97.8
== END 2023-09-14 11:45 | disposition home or self-care (01) ==
LOC: ER 10:41
DX: S42.392A Other fracture of shaft of left humerus, initial encounter for closed fracture (principal); F12.90 Cannabis use, unspecified, uncomplicated; W01.0XXA Fall on same level from slipping, tripping and stumbling without subsequent striking against object, initial encounter; Y93.89 Activity, other specified; Y92.89 Other specified places as the place of occurrence of the external cause; Y99.8 Other external cause status
CPT/HCPCS: 73060; 29105; 96372; 99283; Q0162; J2270; Z7610; A4565

== ENCOUNTER 2023-09-17 16:30 | Emergency (ER) | payer MEDICAID ==
[~2023-09-17] VITALS: Ht 162.6 cm; Wt 75.0 kg
[~2023-09-17 16:30] MED LIST changes: +OXYC-100 MT
[2023-09-17 16:35] VITALS: BP 138/94; PULSE 78; RESP 16; TEMP 98.7; O2SAT 100
[2023-09-17] MEDS: KETOROLAC 60MG/2ML VIAL IM STA (19:14)
[2023-09-17] MEDS: HYDROCODONE/ACETAMINOPHEN 5/325MG TABLET PO STA (19:14)
== END 2023-09-18 01:15 | disposition home or self-care (01) ==
LOC: ER 16:30
DX: S42.302A Unspecified fracture of shaft of humerus, left arm, initial encounter for closed fracture (principal); F12.10 Cannabis abuse, uncomplicated; Z79.899 Other long term (current) drug therapy; Z88.0 Allergy status to penicillin; X58.XXXA Exposure to other specified factors, initial encounter; Y93.89 Activity, other specified; Y92.89 Other specified places as the place of occurrence of the external cause; Y99.8 Other external cause status
CPT/HCPCS: 99283; 96372; J1885

== ENCOUNTER 2024-03-12 10:22 | Emergency (ER) | payer MEDICAID ==
[~2024-03-12] VITALS: Ht 149.9 cm; Wt 132.0 kg
[2024-03-12 10:34] VITALS: O2SAT 99
[2024-03-12 12:59] LABS: BASOPHILS % 0.7 % (0.0-2.0); DIFFERENTIAL COMMENT 0; EOSINOPHILS % 0.7 % (0.0-5.0); HEMATOCRIT. 35.8 % (36.0-48.0); HEMOGLOBIN. 11.1 g/dL (12.0-16.0); MEAN CORPUSCULAR HEMOGLOBIN 23.9 pg (28.0-32.0); MEAN CORPUSCULAR HGB CONC 31.2 g/dL (31.0-37.0); MEAN CORPUSCULAR VOLUME 76.8 fL (81.0-99.0); MEAN PLATELET VOLUME 7.4 fl (7.4-10.4); MONOCYTES % 5.2 % (2.0-8.0); NEUTROPHILS % 72.4 % (40.0-76.0); PLATELET 397 x1000/uL (130-400); RED BLOOD CELL COUNT 4.65 mill/uL (4.2-5.4); RED CELL DISTRIBUTION WIDTH 17.9 % (11.6-14.6); WHITE BLOOD COUNT 5.3 x1000/uL (4.5-11.0)
[2024-03-12 13:09] LABS: CHLORIDE 105 mEq/L (98-107); POTASSIUM 3.5 mEq/L (3.5-5.1); SODIUM 138 mEq/L (136-145)
[2024-03-12 13:10] LABS: CALCIUM 9.1 mg/dL (8.7-10.4); CARBON DIOXIDE 26 mEq/L (21-32)
[2024-03-12 13:15] LABS: CREATININE 0.9 mg/dL (0.6-1.0); GLUCOSE 102 mg/dL (70-105); UREA NITROGEN BLOOD 7 mg/dL (9-23)
[2024-03-12 13:17] LABS: ALANINE AMINOTRANSFERASE < 7 IU/L (10-49); ALBUMIN 4.3 g/dL (3.2-4.8); ASPARTATE AMINOTRANSFERASE 14 IU/L (<34); BILIRUBIN DIRECT 0.1 mg/dL (<=3.0); BILIRUBIN TOTAL 0.4 mg/dL (0.1-1.0); PROTEIN TOTAL 7.5 g/dL (6.0-8.3)
[2024-03-12 13:20] LABS: HCG SCREEN NEGATIVE
[2024-03-12 13:29] LABS: TROPONIN I HIGH SENSITIVITY < 4 ng/L (3.0-34)
[2024-03-12] MEDS: MAGNESIUM/ALUMINUM HYDROXIDE/SIMETHICONE 30ML UDC PO ONE (14:11)
[2024-03-12] MEDS: FAMOTIDINE 20MG TABLET PO ONE (14:11)
[2024-03-12 15:02] VITALS: BP 134/87; PULSE 100; RESP 16; TEMP 37.16964; O2SAT 99
== END 2024-03-12 16:01 | disposition home or self-care (01) ==
LOC: ER 10:30
DX: R19.7 Diarrhea, unspecified (principal); F12.90 Cannabis use, unspecified, uncomplicated; Z88.0 Allergy status to penicillin
CPT/HCPCS: 36415; 80048; 80076; 84484; 84703; 85025; 93005; 99284

== ENCOUNTER 2024-12-25 14:53 | Emergency (ER) | payer MEDICAID, OTHER ==
[~2024-12-25] VITALS: Ht 167.6 cm; Wt 116.0 kg
[2024-12-25 15:10] VITALS: O2SAT 99
[2024-12-25 16:00] LABS: BASOPHILS % 0.7 % (0.0-2.0); DIFFERENTIAL COMMENT 0; EOSINOPHILS % 1.3 % (0.0-5.0); HEMATOCRIT. 39.4 % (36.0-48.0); HEMOGLOBIN. 12.5 g/dL (12.0-16.0); LYMPHOCYTES % 23.8 % (20.0-50.0); MEAN CORPUSCULAR HEMOGLOBIN 24.7 pg (28.0-32.0); MEAN CORPUSCULAR HGB CONC 31.7 g/dL (31.0-37.0); MEAN PLATELET VOLUME 7.6 fl (7.4-10.4); MONOCYTES % 6.3 % (2.0-8.0); NEUTROPHILS % 67.9 % (40.0-76.0); PLATELET 352 x1000/uL (130-400); RED BLOOD CELL COUNT 5.05 mill/uL (4.2-5.4); WHITE BLOOD COUNT 5.1 x1000/uL (4.5-11.0)
[2024-12-25 16:01] LABS: CHLORIDE 105 mEq/L (98-107); POTASSIUM 3.7 mEq/L (3.5-5.1)
[2024-12-25 16:02] LABS: SODIUM 140 mEq/L (136-145)
[2024-12-25 16:03] LABS: CALCIUM 9.2 mg/dL (8.7-10.4); CARBON DIOXIDE 25 mEq/L (21-32)
[2024-12-25 16:08] LABS: CREATININE 0.9 mg/dL (0.6-1.0); GLUCOSE 132 mg/dL (70-105); UREA NITROGEN BLOOD < 5 mg/dL (9-23)
[2024-12-25 16:10] LABS: ALANINE AMINOTRANSFERASE < 7 IU/L (10-49); ASPARTATE AMINOTRANSFERASE 12 IU/L (<34); BILIRUBIN DIRECT 0.2 mg/dL (<=3.0); BILIRUBIN TOTAL 0.8 mg/dL (0.1-1.0); PROTEIN TOTAL 7.2 g/dL (6.0-8.3)
[2024-12-25 16:22] LABS: HCG SCREEN NEGATIVE
[2024-12-25] MEDS ORDERED: METR-167 MT (20:09)
[2024-12-25] MEDS ORDERED: CIPR-263 MT (20:09)
[2024-12-25 20:32] VITALS: BP 123/81; PULSE 100; RESP 20; TEMP 36.6; O2SAT 100
[2024-12-25] MEDS ORDERED: IOHEXOL-300 100 ML BOTTLE ONE (22:29)
== END 2024-12-25 20:38 | disposition home or self-care (01) ==
LOC: ER 14:53
DX: K57.32 Diverticulitis of large intestine without perforation or abscess without bleeding (principal); E03.9 Hypothyroidism, unspecified; F12.90 Cannabis use, unspecified, uncomplicated; Z79.01 Long term (current) use of anticoagulants; Z86.711 Personal history of pulmonary embolism; Z88.0 Allergy status to penicillin
CPT/HCPCS: 99285; 74177; 80076; 80048; 84703; 83690; 85025; 36415; Q9967

== ENCOUNTER 2024-12-28 02:23 | Emergency (ER) | payer OTHER ==
[~2024-12-28] VITALS: Ht 162.6 cm; Wt 127.0 kg
[~2024-12-28 02:23] MED LIST changes: +CIPR-263 MT; +METR-167 MT
[2024-12-28 02:57] VITALS: O2SAT 100
[2024-12-28 04:20] LABS: HEMOGLOBIN. 12.3 g/dL (12.0-16.0); MEAN CORPUSCULAR HEMOGLOBIN 24.9 pg (28.0-32.0); MEAN CORPUSCULAR HGB CONC 31.6 g/dL (31.0-37.0); MEAN CORPUSCULAR VOLUME 78.9 fL (81.0-99.0); MEAN PLATELET VOLUME 7.9 fl (7.4-10.4); PLATELET 350 x1000/uL (130-400); RED BLOOD CELL COUNT 4.95 mill/uL (4.2-5.4); RED CELL DISTRIBUTION WIDTH 19.3 % (11.6-14.6); WHITE BLOOD COUNT 4.7 x1000/uL (4.5-11.0)
[2024-12-28 04:31] LABS: CHLORIDE 106 mEq/L (98-107); POTASSIUM 3.2 mEq/L (3.5-5.1); SODIUM 139 mEq/L (136-145)
[2024-12-28 04:33] LABS: CALCIUM 9.5 mg/dL (8.7-10.4); CARBON DIOXIDE 21 mEq/L (21-32)
[2024-12-28 04:36] LABS: DIFFERENTIAL COMMENT 1
[2024-12-28 04:38] LABS: CREATININE 1.1 mg/dL (0.6-1.0); GLUCOSE 106 mg/dL (70-105); UREA NITROGEN BLOOD 10 mg/dL (9-23)
[2024-12-28 04:40] LABS: TROPONIN I HIGH SENSITIVITY < 4 ng/L (3.0-34)
[2024-12-28 06:34] LABS: CLARITY URINE CLEAR (CLEAR); COLOR URINE DARK YELLOW (YELLOW); GLUCOSE URINE NEGATIVE (NEGATIVE); KETONES URINE 3+ (NEGATIVE); LEUKOCYTE ESTERASE URINE 1+ (NEGATIVE); NITRITE URINE NEGATIVE (NEGATIVE); OCCULT BLOOD URINE 3+ (NEGATIVE); PROTEIN URINE NEGATIVE (NEGATIVE); SPECIFIC GRAVITY URINE 1.023 (1.005-1.030)
[2024-12-28 06:38] LABS: HYPOCHROMASIA 1+; PLATELET ESTIMATE NORMAL
[2024-12-28 06:39] LABS: MICROCYTOSIS 1+
[2024-12-28 06:53] LABS: ALANINE AMINOTRANSFERASE < 7 IU/L (10-49); ALBUMIN 4.4 g/dL (3.2-4.8); ASPARTATE AMINOTRANSFERASE 18 IU/L (<34); BILIRUBIN DIRECT 0.2 mg/dL (<=3.0); BILIRUBIN TOTAL 0.5 mg/dL (0.1-1.0); PROTEIN TOTAL 7.8 g/dL (6.0-8.3)
[2024-12-28] MEDS: ONDANSETRON 4MG ODT PO ONE (06:53)
[2024-12-28 07:19] LABS: RBC URINE TNTC /hpf (0-2); SQUAMOUS EPITHELIAL CELL URINE FEW /lpf (RARE/1+); WBC URINE 0-2 /hpf (0-2)
[2024-12-28 07:20] LABS: BACTERIA URINE NONE SEEN
[2024-12-28] MEDS ORDERED: ONDA-239 PO (08:22)
[2024-12-28 08:35] VITALS: BP 117/77; PULSE 89; RESP 18; TEMP 36.6; O2SAT 97
== END 2024-12-28 08:36 | disposition home or self-care (01) ==
LOC: ER 02:23
DX: R11.0 Nausea (principal); F12.10 Cannabis abuse, uncomplicated; R79.89 Other specified abnormal findings of blood chemistry; Z88.0 Allergy status to penicillin; Z79.899 Other long term (current) drug therapy; Z98.890 Other specified postprocedural states
CPT/HCPCS: 99283; 80076; 80048; 81003; 83690; 85025; 84484; 36415; Q0162

== ENCOUNTER 2025-03-07 19:35 | Emergency (ER) | payer MEDICAID ==
[~2025-03-07] VITALS: Ht 162.6 cm; Wt 127.0 kg
[~2025-03-07 19:35] MED LIST changes: +ONDA-239 PO
[2025-03-07 20:00] VITALS: O2SAT 100
[2025-03-08] MEDS: TETANUS, DIPHTHERIA, PERTUSSIS VAC/PF 0.5ML (>10YR OLD) IM ONE (00:05)
[2025-03-08] MEDS ORDERED: BO1 TP (00:19)
[2025-03-08 00:35] VITALS: BP 164/86; PULSE 77; RESP 15; TEMP 36.8; O2SAT 100
== END 2025-03-08 00:40 | disposition home or self-care (01) ==
LOC: ER 19:42
DX: S90.859A Superficial foreign body, unspecified foot, initial encounter (principal); S91.332A Puncture wound without foreign body, left foot, initial encounter; Z79.01 Long term (current) use of anticoagulants; Z18.81 Retained glass fragments; Z88.0 Allergy status to penicillin; W25.XXXA Contact with sharp glass, initial encounter; Y93.89 Activity, other specified; Y92.512 Supermarket, store or market as the place of occurrence of the external cause; Y99.8 Other external cause status
CPT/HCPCS: 10120; 73620; 99284; 99285